=== PATIENT | female | born 1990 | race African-American/Black ===

== ENCOUNTER 2024-03-04 15:00 | Inpatient (IN) | payer OTHER ==
[2024-03-04 17:47] LABS: EPI CELLS 12 /uL (0-25.1); HYALINE CASTS 0 /uL (0-3.1); PH,URINE 6.5 (5.0-8.0); URINE APPEARANCE CLEAR; URINE BACTERIA 211 /uL (0-1359); URINE BILIRUBIN NEGATIVE (NEGATIVE); URINE COLOR YELLOW; URINE GLUCOSE (UA) NEGATIVE (NEGATIVE); URINE KETONE NEGATIVE (NEGATIVE); URINE LEUK ESTERASE TRACE (NEGATIVE); URINE NITRITE NEGATIVE (NEGATIVE); URINE PROTEIN 1+ (NEGATIVE); URINE RBC 27 /uL (0-23.9); URINE UROBILINOGEN 0.2 mg/dL (0.2-1.0); URINE WBC 34 /uL (0-25.8)
[2024-03-04 18:37] LABS: BASO % 0.2 % (0-2.0); EOS % 1.4 % (0-4.5); HEMATOCRIT 38.9 % (32.4-45.2); HEMOGLOBIN 13.7 GM/dL (10.7-15.3); LYMPH % 19.3 % (8-40); MCH 29.8 pg (25.7-33.7); MCHC 35.1 g/dl (32.0-36.0); MEAN CELL VOLUME 84.7 fl (80-96); MEAN PLT VOLUME 8.8 fl (7.5-11.1); MONO % 8.4 % (3.8-10.2); NEUT % 70.7 % (42.8-82.8); PLATELET COUNT 315 10^3/uL (134-434); RDW 15.9 % (11.6-15.6); WHITE BLOOD COUNT 8.3 K/mm3 (4.0-10.0)
[2024-03-04 18:41] LABS: INR 0.88 (0.83-1.09)
[2024-03-04 18:44] LABS: ACTIVATED PTT 28.7 SECONDS (25.2-36.5)
[2024-03-04 19:03] LABS: POTASSIUM 4.2 mmol/L (3.5-5.1)
[2024-03-04 19:05] LABS: BLOOD UREA NITROGEN 11.6 mg/dL (7-18); CALCIUM 9.5 mg/dL (8.5-10.1)
[2024-03-04 19:08] VITALS: BMI 40.4
[2024-03-04 19:08] LABS: URIC ACID 4.6 mg/dL (2.6-7.2)
[2024-03-04 19:09] LABS: CREATININE 0.6 mg/dL (0.55-1.3)
[2024-03-04] MEDS: DINOPROSTONE 10 MG VAGINAL SUPPOSITORY VG ONE (19:15)
[2024-03-04] MEDS: ELECTROLYTE-148 SOLN 1,000 ML IV SCH (23:15)
[2024-03-05] MEDS ORDERED: BUTORPHANOL TARTRATE 2 MG/ML VIAL ONE (06:18)
[2024-03-05] MEDS ORDERED: PROMETHAZINE HCL 25 MG/1 ML VIAL ONE (06:18)
[2024-03-05] MEDS: BUTORPHANOL TARTRATE 2 MG/ML VIAL IVPB ONE (06:25)
[2024-03-05] MEDS: PROMETHAZINE HCL 25 MG/1 ML VIAL IVPB ONE (06:25)
[2024-03-05] MEDS ORDERED: OXYTOCIN 30 UNITS in 0.9% NS 30 UNIT/500 ML INFUS.BAG IVPB ONE (11:08)
[2024-03-05] MEDS: OXYTOCIN 30 UNITS in 0.9% NS 30 UNIT/500 ML INFUS.BAG IVPB SCH (11:35)
[2024-03-06] MEDS ORDERED: OXYTOCIN 30 UNITS in 0.9% NS 30 UNIT/500 ML INFUS.BAG IVPB ONE (07:05)
[2024-03-06] MEDS ORDERED: FENTANYL/BUPIVACAINE/NS/PF - PCEA - 50 ML DISP.SYRIN EP ONE ×2 (17:52→22:33)
[2024-03-06] MEDS: FENTANYL/BUPIVACAINE/NS/PF - PCEA - 50 ML DISP.SYRIN EP SCH (18:10)
[2024-03-06] MEDS ORDERED: NALOXONE HCL 0.4 MG/ML VIAL IVPUSH PRN (18:27)
[2024-03-07] MEDS ORDERED: LABETALOL HCL 20 MG/4 ML VIAL ONE (00:42)
[2024-03-07] MEDS: LABETALOL HCL 5 MG/1 ML (100MG/20 ML VIAL) IVPUSH ONE (00:55)
[2024-03-07] MEDS ORDERED: OXYTOCIN 30 UNITS in 0.9% NS 30 UNIT/500 ML INFUS.BAG IVPB ONE (01:42)
[2024-03-07] MEDS ORDERED: METHYLERGONOVINE MALEATE 0.2 MG/1 ML AMP IM PRN (01:53)
[2024-03-07 01:56] LABS: RETICULOCYTES 1.55 % (0.5-1.5)
[2024-03-07] MEDS ORDERED: FENTANYL CITRATE/PF 50 MCG/ML VIAL ONE (01:57)
[2024-03-07] MEDS: CEFAZOLIN 1 GM in DEXTROSE 5%-WATER - 50 ML IVPB SCH (02:00)
[2024-03-07 02:17] LABS: POTASSIUM 3.8 mmol/L (3.5-5.1)
[2024-03-07 02:20] LABS: CALCIUM 8.6 mg/dL (8.5-10.1)
[2024-03-07 02:21] LABS: ALBUMIN 2.5 g/dl (3.4-5.0); BLOOD UREA NITROGEN 8.1 mg/dL (7-18)
[2024-03-07 02:23] LABS: URIC ACID 5.6 mg/dL (2.6-7.2)
[2024-03-07 02:24] LABS: CREATININE 0.7 mg/dL (0.55-1.3)
[2024-03-07 02:25] LABS: TOT PROT 5.8 g/dl (6.4-8.2)
[2024-03-07 02:26] LABS: BILIRUBIN,TOTAL 0.9 mg/dL (0.2-1)
[2024-03-07 03:16] LABS: CORD BASE EXCESS -2.9 mmol/L (0-2); CORD HCO3 23.3 mmHg (20-29); CORD PCO2 45.3 mmHg (30-78); CORD pH 7.33 (7.14-7.44)
[2024-03-07 03:22] LABS: CORD BASE EXCESS -3.2 mmol/L (0-2); CORD HCO3 25.1 mmHg (20-29); CORD PCO2 56.2 mmHg (30-78); CORD pH 7.267 (7.14-7.44)
[2024-03-07] MEDS: OXYTOCIN 20 UNITS in 0.9% NS 20 UNIT/1,000 ML INFUS.BAG IV SCH (03:30)
[2024-03-07] MEDS ORDERED: OXYTOCIN 20 UNITS in 0.9% NS 20 UNIT/1,000 ML INFUS.BAG IV ONE (03:33)
[2024-03-07] MEDS: ENOXAPARIN NA (PORCINE) 40 MG/0.4 ML DISP.SYRIN SQ SCH (09:15)
[2024-03-07] MEDS ORDERED: oxyCODONE HCL 5 MG TABLET PO PRN (13:53)
[2024-03-07] MEDS: ACETAMINOPHEN 325 MG TABLET (FP) PO PRN (15:05)
[2024-03-07] MEDS ORDERED: IBUPROFEN 800 MG/8 ML IJ IVPB PRN (16:55)
[2024-03-07] MEDS: IBUPROFEN 800 MG/8 ML IJ IVPB PRN (18:03)
[2024-03-08] MEDS ORDERED: BISACODYL 10 MG SUPP.RECT RC PRN (01:53)
[2024-03-08] MEDS: SIMETHICONE 80 MG TAB.CHEW (FP) PO PRN (05:30)
[2024-03-08] MEDS: IBUPROFEN 600 MG TABLET (FP) PO PRN (05:31)
[2024-03-08 09:25] LABS: BASO % 0.2 % (0-2.0); EOS % 2.7 % (0-4.5); HEMATOCRIT 38.2 % (32.4-45.2); HEMOGLOBIN 13.3 GM/dL (10.7-15.3); LYMPH % 6.2 % (8-40); MCH 29.7 pg (25.7-33.7); MCHC 34.9 g/dl (32.0-36.0); MEAN PLT VOLUME 7.8 fl (7.5-11.1); MONO % 5.6 % (3.8-10.2); NEUT % 85.3 % (42.8-82.8); PLATELET COUNT 301 10^3/uL (134-434); RDW 16.4 % (11.6-15.6); WHITE BLOOD COUNT 10.9 K/mm3 (4.0-10.0)
[2024-03-08] MEDS: diphenhydrAMINE HCL 12.5 MG/5 ML UNIT-DOSE CUPS PO PRN (14:42)
[2024-03-08 15:15] LABS: POTASSIUM 4.2 mmol/L (3.5-5.1)
[2024-03-08 15:17] LABS: ALBUMIN 2.4 g/dl (3.4-5.0); BLOOD UREA NITROGEN 6.2 mg/dL (7-18); CALCIUM 8.4 mg/dL (8.5-10.1)
[2024-03-08 15:20] LABS: CREATININE 0.8 mg/dL (0.55-1.3)
[2024-03-08 15:22] LABS: BILIRUBIN,TOTAL 0.4 mg/dL (0.2-1); TOT PROT 5.8 g/dl (6.4-8.2)
[2024-03-10 06:39] LABS: BASO % 0.2 % (0-2.0); EOS % 4.6 % (0-4.5); HEMATOCRIT 33.5 % (32.4-45.2); HEMOGLOBIN 11.4 GM/dL (10.7-15.3); LYMPH % 12.7 % (8-40); MCH 29.1 pg (25.7-33.7); MEAN CELL VOLUME 85.6 fl (80-96); MEAN PLT VOLUME 7.7 fl (7.5-11.1); MONO % 9.4 % (3.8-10.2); NEUT % 73.1 % (42.8-82.8); PLATELET COUNT 333 10^3/uL (134-434); RBC 3.91 M/mm3 (3.60-5.2); RDW 16.3 % (11.6-15.6); WHITE BLOOD COUNT 8.2 K/mm3 (4.0-10.0)
[2024-03-10 09:57] VITALS: BP 137/91; PULSE 100; RESP 17; TEMP 98.4
== END 2024-03-10 12:35 | disposition home or self-care (01) | DRG 788 ==
LOC: JDEL 15:00 → JLDR 17:45 → J3W 03-07 05:01
PROVIDERS: ADMIT Obstetrics & Gynecology; ATTEND Obstetrics & Gynecology
PROC: 3E0P7VZ Introduction of Hormone into Female Reproductive, Via Natural or Artificial Opening (ICD-10-PCS; 2024-03-04)
PROC: 10D00Z1 Extraction of Products of Conception, Low, Open Approach (ICD-10-PCS; principal; 2024-03-07)
DX: O13.4 Gestational [pregnancy-induced] hypertension without significant proteinuria, complicating childbirth (principal); O62.0 Primary inadequate contractions; O99.213 Obesity complicating pregnancy, third trimester; Z3A.38 38 weeks gestation of pregnancy; Z37.0 Single live birth
CPT/HCPCS: 36415; 36600; 59025; 80048; 80053; 81003; 82803; 82977; 83010; 84450; 84460; 84550; 85025; 85032; 85045; 85610; 85730; 86780; 86850; 86900; 86901; 88307-TC